=== PATIENT | female | born 1940 | race Caucasian/White ===

== ENCOUNTER 2018-07-19 09:42 | Outpatient (CLI) | payer MEDICARE ==
--- NOTE | 2018-07-19 11:25 | MRI ---
FCervical spine MRI without contrast: 07/19/2018 COMPARISON: None HISTORY: Neck pain with left upper extremity radiculopathy, cervical radiculopathy TECHNIQUE: Multiplanar multisequence MR imaging of cervical spine provided without contrast FINDINGS: No significant anterolisthesis or retrolisthesis. Prevertebral soft tissues unremarkable. S TIR imaging demonstrates degenerative edematous endplate change at the C4-5 level. C2-3: Mild bilateral facet hypertrophy. No significant central canal or neural foraminal stenosis. Di sc desiccation noted. C3-4: There is disc space narrowing and disc desiccation with minimal disc bulge. No associated centr al canal stenosis. Bilateral facet and uncovertebral osteophyte formation, left greater than right. M ild right and moderate left neural foraminal stenosis. C4-5: Disc space narrowing and disc desiccation present with disc bulge and superimposed small left p aracentral disc protrusion. There is associated effacement of the ventral thecal sac with a mild degr ee of central canal stenosis to the left of midline. Facet and uncovertebral osteophyte formation pre sent on the left with moderate/severe left foraminal stenosis. No significant right neural foraminal stenosis C5-6: Disc space narrowing and disc desiccation and disc bulge with central disc protrusion effaces v entral thecal sac and abuts the ventral aspect of the cord with mild cord flattening and a moderate/s evere degree of associated central canal stenosis. Bilateral facet and uncovertebral osteophyte forma tion, left great than right, with moderate right and severe left neural foraminal stenosis. C6-7: Disc space narrowing and disc desiccation with mild disc bulge and anterior osteophyte formatio n. Partial effacement of ventral thecal sac with mild central canal stenosis. Mild left facet and unc overtebral osteophyte formation with mild left-sided neural foraminal stenosis. No significant right neural foraminal stenosis. C7-T1: Disc space narrowing and disc desiccation with mild disc bulge causing no significant central canal stenosis. Mild left neural foraminal stenosis on the basis of facet and uncovertebral osteophyt e formation. No focal area of abnormal signal intensity is identified within the cervical cord. IMPRESSION: Prominent multilevel cervical spine degenerative change, most significant at C4-5, C5-6, and C6-7 as detailed above.
== END 2018-07-19 09:43 | disposition home or self-care (01) ==
LOC: TBSIIMAG 09:42
PROVIDERS: ATTEND Neurological Surgery
DX: M47.22 Other spondylosis with radiculopathy, cervical region (principal)
CPT/HCPCS: 72141

== ENCOUNTER 2018-08-20 12:18 | Outpatient (CLI) | payer MEDICARE ==
[2018-08-20 12:56] LABS: Hemoglobin 14.1 g/dL (12.0-16.0); Mean Corpuscular HGB CONC 33.1 g/dL (32.0-36.0); Mean Corpuscular Hemoglobin 31.2 pg (27.0-31.0); Mean Corpuscular Volume 94.2 fL (78.0-98.0); Mean Platelet Volume 8.8 fL (7.4-10.4); Platelet Count 197 thou/uL (130-400); RBC Distribution Width 12.2 % (11.5-14.5); Red Blood Cell (RBC) Count 4.54 mill/uL (4.20-5.40); White Blood Cell (WBC) Count 10.7 thou/uL (4.8-10.8)
[2018-08-20 13:13] LABS: Anion Gap 14 mmol/L (10-20); BUN (Urea Nitrogen) 17 mg/dL (9.8-20.1); Calc. Creatinine Clearance 0 mL/min (70-130); Calcium 9.8 mg/dL (7.8-10.44); Carbon Dioxide 24 mmol/L (23-31); Chloride 105 mmol/L (98-107); Estimated GFR-MDRD 75; Glucose 86 mg/dL (83-110); Potassium 4.4 mmol/L (3.5-5.1); Sodium 139 mmol/L (136-145)
== END 2018-08-20 12:19 | disposition home or self-care (01) ==
LOC: LABBT 12:18
PROVIDERS: ATTEND Neurological Surgery
DX: Z01.818 Encounter for other preprocedural examination (principal); M54.12 Radiculopathy, cervical region
CPT/HCPCS: 80048; 85027; 93005; 93010

== ENCOUNTER 2018-08-21 06:05 | Day surgery (SDC) | payer MEDICARE ==
[2018-08-20 12:39] VITALS: BMI 28.1
[2018-08-21] MEDS ORDERED: Fentanyl 100 MCG/2 ML VIAL ONE ×3 (06:22→09:18)
[2018-08-21] MEDS ORDERED: Sodium Chloride 0.9% 10 ML ONE (06:44)
--- NOTE | 2018-08-21 10:42 | OP ---
DATE OF PROCEDURE: 08/21/2018 BEHAVIORAL INTERVENTIONIST: Venancio Shea PA-C PROCEDURES PERFORMED: Anterior cervical diskectomy C5-C6 and C6-C7, interbody arthrodesis, intervertebral biomechanical device, local morselized autograft, demineralized bone matrix, and anterior titanium instrumentation C5-C6 and C6-C7. DESCRIPTION OF PROCEDURE: The patient was brought to the operating room and intubated. She was positioned supine with the head in modest extension on a gel-filled donut. Incision was made in the right precervical area and dissected medial to the sternocleidomastoid muscle, identified the anterior cervical spinal, and the level was confirmed by x-ray. We debrided the anterior osteophytes, placed distraction from C5 to C7 using the operating microscope and microdissection techniques, completely decompressed the neural elements with particular attention in the left neural foramina. Bony endplates were then decorticated for the purpose of arthrodesis and appropriate-sized intervertebral biomechanical PEEK device was brought into the field, filled with demineralized bone matrix and local morselized autograft, and tapped in place securely at C5-C6 and C6-C7. An anterior plate was brought into the field and secured to C5, C6, and C7 using two 14-mm screws at each level. The wound was then extensively irrigated and maximum hemostasis was secured. The wound was closed in anatomic layers. Job ID: [id number]
[2018-08-21] MEDS ORDERED: Ondansetron PF 4 MG/2 ML Vial ONE (11:14)
[2018-08-21] MEDS ORDERED: Glycopyrrolate 0.2 MG/ML 5 ML SYRINGE ONE (11:14)
[2018-08-21] MEDS ORDERED: Dexamethasone 20 MG/5 ML VIAL ONE (11:14)
[2018-08-21] MEDS ORDERED: Lidocaine 1% PF 5 ML VIAL ONE (11:14)
[2018-08-21] MEDS ORDERED: PROPOFOL 200 MG/20 ML VIAL ONE (11:14)
[2018-08-21] MEDS ORDERED: Rocuronium Bromide 10 MG/ML (10ML VIAL) ONE (11:14)
== END 2018-08-21 11:15 | disposition home or self-care (01) ==
LOC: SDC 06:05
PROVIDERS: ATTEND Neurological Surgery
PROC: 0RG20A0 Fusion of 2 or more Cervical Vertebral Joints with Interbody Fusion Device, Anterior Approach, Anterior Column, Open Approach (ICD-10-PCS; principal; 2018-08-21)
PROC: 0RT30ZZ Resection of Cervical Vertebral Disc, Open Approach (ICD-10-PCS; 2018-08-21)
DX: M47.22 Other spondylosis with radiculopathy, cervical region (principal); M50.122 Cervical disc disorder at C5-C6 level with radiculopathy; M48.02 Spinal stenosis, cervical region; E89.0 Postprocedural hypothyroidism; Z79.899 Other long term (current) drug therapy; Z88.5 Allergy status to narcotic agent; Z91.048 Other nonmedicinal substance allergy status
CPT/HCPCS: 20930; 20936; 22551; 22552; 22845; 22853 ×2; 76000; C1713 ×2; C1776; J0690; J3010; J3490

== ENCOUNTER 2018-09-05 14:56 | Outpatient (CLI) | payer MEDICARE ==
--- NOTE | 2018-09-05 15:14 | RAD ---
EXAM: 3 views of the cervical spine HISTORY: Cervical fusion 2 weeks ago COMPARISON: None FINDINGS: AP, lateral, and open mouth odontoid views of the cervical spine shows the patient to be st atus post anterior fusion of C5-C7. Disc spacers are in good position in the intervening disc spaces. There is normal height and alignment of the vertebral bodies and intervertebral discs without fracture or subluxation. Joint space narrowing and osteophyte formation is seen surrounding the C4/5 intervertebral disc. No prevertebral soft tissue swelling is seen. IMPRESSION: Status post fusion of the cervical spine without evidence of complication.
== END 2018-09-05 14:57 | disposition home or self-care (01) ==
LOC: TBSIIMAG 14:56
PROVIDERS: ATTEND Neurological Surgery
DX: M54.12 Radiculopathy, cervical region (principal); Z98.1 Arthrodesis status
CPT/HCPCS: 72040

== ENCOUNTER 2018-10-16 15:02 | Outpatient (CLI) | payer MEDICARE ==
--- NOTE | 2018-10-16 15:21 | RAD ---
EXAM: XR Cerv Sp Ap Lat STANDARD PROVIDED CLINICAL HISTORY: Follow-up cervical spine surgery. COMPARISON: 09/05/2018 FINDINGS: Again noted are postsurgical changes related to anterior cervical fusion at the C5-6 and C6-7 levels with anterior plate and screws again present. Intradiscal prostheses are again noted. No hardware complication is seen. Alignment of the cervical spine is within normal limits and stable from prior s tudy. There are degenerative changes seen above and below levels of postsurgical change with narrowing of the intervertebral disc space and osteophytes present. Facet degenerative changes are no neetu. No fracture or subluxation is identified. IMPRESSION: Stable degenerative and postsurgical changes of the cervical spine.
== END 2018-10-16 15:03 | disposition home or self-care (01) ==
LOC: TBSIIMAG 15:02
PROVIDERS: ATTEND Neurological Surgery
DX: M50.30 Other cervical disc degeneration, unspecified cervical region (principal); M47.812 Spondylosis without myelopathy or radiculopathy, cervical region; Z98.1 Arthrodesis status
CPT/HCPCS: 72040

== ENCOUNTER 2019-05-05 09:54 | Emergency (ER) | payer MEDICARE ==
[2019-05-05 11:18] LABS: #Eosinphils 0.1 thou/uL (0.0-0.7); #Lymphocytes 2.5 thou/uL (1.20-3.40); #Neutrophils 5.9 thou/uL (1.40-6.50); %Basophils 0.4 % (0.0-1.0); %Eosinophils 1.1 % (0.0-10.0); %Lymphocytes 26.3 % (21.0-51.0); %Monocytes 10.1 % (0.0-10.0); %Neutrophils 62.2 % (42.0-75.0); Hemoglobin 13.2 g/dL (12.0-16.0); Mean Corpuscular HGB CONC 32.4 g/dL (32.0-36.0); Mean Corpuscular Hemoglobin 29.9 pg (27.0-31.0); Mean Corpuscular Volume 92.3 fL (78.0-98.0); Mean Platelet Volume 8.8 fL (7.4-10.4); Platelet Count 195 thou/uL (130-400); RBC Distribution Width 12.6 % (11.5-14.5); Red Blood Cell (RBC) Count 4.41 mill/uL (4.20-5.40); White Blood Cell (WBC) Count 9.4 thou/uL (4.8-10.8)
[2019-05-05 11:24] LABS: Bilirubin Negative (Negative); Blood, Urine 3+ (Negative); Clarity Turbid (Clear); Glucose, Urine (Dipstick) Normal (Negative); Leukocyte Negative Leu/uL (Negative); Nitrite Negative (Negative); Protein, Urine (Dipstick) 20 mg/dL (Neg-Trace); RBC/HPF Greater than 50 HPF (0-3); Squamous Epithelial 0-3 HPF (0-3); Urobilinogen Normal mg/dL (Less than 2)
[2019-05-05 11:29] LABS: Bacteria/HPF 1+ HPF (None Seen)
[2019-05-05 11:46] LABS: ALT (SGPT) 14 U/L (8-55); AST (SGOT) 17 U/L (5-34); Albumin 4.1 g/dL (3.4-4.8); Alkaline Phosphatase 77 U/L (40-110); Anion Gap 12 mmol/L (10-20); BUN (Urea Nitrogen) 14 mg/dL (9.8-20.1); Bilirubin, Total 0.3 mg/dL (0.2-1.2); Calc. Creatinine Clearance 0 mL/min (70-130); Calcium 9.4 mg/dL (7.8-10.44); Carbon Dioxide 23 mmol/L (23-31); Chloride 105 mmol/L (98-107); Estimated GFR-MDRD 71; Globulin 2.8 g/dL (2.4-3.5); Glucose 91 mg/dL (83-110); Potassium 4.3 mmol/L (3.5-5.1); Protein, Total 6.9 g/dL (6.0-8.3); Sodium 136 mmol/L (136-145)
--- NOTE | 2019-05-05 13:01 | CT ---
CT ABDOMEN WITH CONTRAST CT PELVIS WITH CONTRAST: DATE: 05/05/2019. HISTORY: A 78-year-old female with hematuria and abdominal pain. COMPARISON: None available. TECHNIQUE: IV injection of iodinated contrast media: Administered. Oral contrast media: Not administered. FINDINGS: Multiple sigmoid colonic diverticula without diverticulitis. No small bowel dilation, ascites, or pn eumoperitoneum. Approximately 4 cm hepatic cyst right lobe liver segment 7. No other hepatic abnorm ality. Cholecystectomy clips. Approximately 1.5 cm exophytic probable cyst at upper pole cortex of right kidney. At the right renal upper pole parenchyma located posterolaterally, there is an approximately 2.5 x 3 x 2.5 cm area of intermediate-high density (slightly lower in attenuation compared to the nephrograph ic phase dense of adjacent normal renal parenchyma, but still high, approximately 100 HU). No hydron ephrosis. Normal left kidney, abdominal aorta, spleen, adrenals, pancreas, and urinary bladder. There is a large number of slightly enlarged periaortic retroperitoneal lymph nodes. Beginning at th e level of the renal arteries, and extending down almost to the aortic bifurcation. One of the large r ones is approximately 1.5 x 1 cm close to the left renal vein (axial image 32 of 98, series 2). IMPRESSION: 1. A 3 x 2.5 x 2.5 cm lesion in the right renal upper pole parenchyma. Differential diagnosis is re nal cell carcinoma vs pyelonephritis vs subacute infarction. Tumor is favored. 2. Recommend multiphase CT abdomen and pelvis with and without contrast CT urogram (in 2 or 3 days t o allow the kidneys to recover from the current IV contrast load). Also recommend urology consultati on. 3. Retroperitoneal lymphadenopathy, possibly malignant. CODE T JN R POS: OFF
[2019-05-05] MEDS ORDERED: Iopamidol-370 76% 500 ML 1 ML ONE (15:02)
== END 2019-05-05 13:13 | disposition home or self-care (01) ==
LOC: ERS 09:54
DX: N28.89 Other specified disorders of kidney and ureter (principal); Z87.891 Personal history of nicotine dependence; Z79.899 Other long term (current) drug therapy
CPT/HCPCS: 36415; 74177; 80053; 81003; 81015; 85025; 87086; Q9967

== ENCOUNTER 2021-05-02 13:27 | Outpatient (CLI) | payer MEDICARE | END 2021-05-02 13:28 | disposition home or self-care (01) | LOC: BICMAMMO 13:27 | PROVIDERS: ATTEND Internal Medicine Rheumatology | DX: M81.0 Age-related osteoporosis without current pathological fracture (principal) | CPT/HCPCS: 77080 ==

== ENCOUNTER 2021-05-02 13:58 | Outpatient (CLI) | payer MEDICARE | END 2021-05-02 13:59 | disposition home or self-care (01) | LOC: BICRAD 13:58 | PROVIDERS: ATTEND Internal Medicine Rheumatology | DX: M17.11 Unilateral primary osteoarthritis, right knee (principal) ==

== ENCOUNTER 2022-07-05 09:42 | Outpatient (CLI) | payer MEDICARE | END 2022-07-05 09:43 | disposition home or self-care (01) | LOC: BICMAMMO 09:42 | PROVIDERS: ATTEND Internal Medicine Rheumatology | DX: M81.0 Age-related osteoporosis without current pathological fracture (principal); M85.89 Other specified disorders of bone density and structure, multiple sites | CPT/HCPCS: 77080 ==